=== PATIENT | male | born 1955 ===

== ENCOUNTER 2018-11-16 11:21 | Emergency (ER) | payer OTHER ==
[~2018-11-16] VITALS: Ht 170.2 cm; Wt 75.0 kg
[~2018-11-16 11:21] MED LIST: ACET-812 PO; FLUT100D2 INH; GING550C4 PO; LORA10TA7 PO; NITR0.4T48 SL; OMEG-169 PO; TURM500C7 PO
[2018-11-16] MEDS ORDERED: aspirin 81mg tab.chew PO ONE (11:40)
[2018-11-16 12:08] LABS: BASOPHILS % (AUTO) 0.7 % (0-1); EOSINOPHILS # (AUTO) 0.1 X10'3 (0-0.9); EOSINOPHILS % (AUTO) 1.6 % (0-6); HEMOGLOBIN 14.9 g/dl (14.0-17.9); LYMPHOCYTES # (AUTO) 1.5 X10'3 (1.1-4.8); LYMPHOCYTES % (AUTO) 27.4 % (21-51); MEAN CORPUSCULAR HEMOGLOBIN 30.8 PG (27.0-31.0); MEAN CORPUSCULAR HGB CONC 33.8 g/dL (33.0-36.5); MEAN CORPUSCULAR VOLUME 91.2 FL (78-98); MONOCYTES # (AUTO) 0.6 X10'3 (0-0.9); NEUTROPHILS # (AUTO) 3.2 X10'3 (1.8-7.7); NEUTROPHILS % (AUTO) 58.3 % (42-75); PLATELET COUNT 201 X10'3 (140-440); RED BLOOD COUNT 4.82 X10'6 (4.70-6.10); RED CELL DISTRIBUTION WIDTH 13.6 % (11.5-14.5); WHITE BLOOD COUNT 5.4 X10'3 (4.5-11.0)
[2018-11-16 12:17] LABS: ALANINE AMINOTRANSFERASE 29 U/L (12-78); ALBUMIN/GLOBULIN RATIO 1.4 (1.1-1.5); ALKALINE PHOSPHATASE 68 IU/L (46-116); ANION GAP 10 (8-16); ASPARTATE AMINO TRANSFERASE 14 U/L (10-37); BILIRUBIN,TOTAL 0.4 MG/DL (0.1-1.0); BLOOD UREA NITROGEN 18 MG/DL (7-18); BUN/CREATININE RATIO 15.9 (5.4-32.0); CALCIUM 8.9 MG/DL (8.5-10.1); CHLORIDE 110 MMOL/L (99-107); CREATININE 1.13 MG/DL (0.60-1.10); GLUCOSE 95 MG/DL (70-104); SODIUM 143 MMOL/L (135-145); TOTAL CARBON DIOXIDE 23.2 MMOL/L (24-32); TOTAL PROTEIN 6.9 G/DL (6.4-8.2); eGFR 66 ML/MIN
[2018-11-16 12:24] LABS: MAGNESIUM 2.3 MG/DL (1.5-2.4)
[2018-11-16] MEDS ORDERED: ALPRAZolam 0.5mg tablet PO ONE (12:40)
[2018-11-16 15:53] VITALS: BP 143/84
== END 2018-11-16 15:59 | disposition home or self-care (01) ==
LOC: ER 11:22
DX: R07.89 Other chest pain (principal); Z95.1 Presence of aortocoronary bypass graft; Z79.899 Other long term (current) drug therapy
CPT/HCPCS: 36415; 71045; 80053; 83735; 83880; 84484; 85025; 93005; 99284

== ENCOUNTER 2018-12-31 08:02 | Outpatient (CLI) | payer OTHER ==
[2018-12-31] VITALS (7 sets, daily range): BP systolic 117–146; BP diastolic 70–80
[~2018-12-31] VITALS: Ht 75.6 cm; Wt 67.0 kg
[2018-12-31] MEDS ORDERED: nitroGLYCERIN 0.4mg SUBLingual tab SL PRN (08:45)
[2018-12-31] MEDS ORDERED: aminophylline 250mg/10ml inj. IV PRN (08:45)
[2018-12-31] MEDS ORDERED: normal saline 500ml IV soln 500 ML IV ONE (08:45)
[2018-12-31] MEDS ORDERED: regadenoson 0.4mg/5ml syringe IV ONE (08:45)
== END 2018-12-31 23:59 | disposition home or self-care (01) ==
LOC: RAD 08:02
PROVIDERS: ATTEND Internal Medicine Cardiovascular Disease
DX: R07.9 Chest pain, unspecified (principal)
CPT/HCPCS: 78452; 93017; 93306; A9500; J2785; J7040

== ENCOUNTER 2019-01-16 06:02 | Day surgery (SDC) | payer OTHER ==
[2019-01-15 10:08] LABS: BASOPHILS % (AUTO) 0.7 % (0-1); EOSINOPHILS % (AUTO) 1.3 % (0-6); HEMATOCRIT 44.4 % (42.0-52.0); HEMOGLOBIN 15.2 g/dl (14.0-17.9); LYMPHOCYTES # (AUTO) 1.3 X10'3 (1.1-4.8); LYMPHOCYTES % (AUTO) 34.6 % (21-51); MEAN CORPUSCULAR HEMOGLOBIN 31.8 PG (27.0-31.0); MEAN CORPUSCULAR HGB CONC 34.2 g/dL (33.0-36.5); MEAN CORPUSCULAR VOLUME 93.2 FL (78-98); MEAN PLATELET VOLUME 8.6 FL (7.4-10.4); MONOCYTES # (AUTO) 0.5 X10'3 (0-0.9); NEUTROPHILS # (AUTO) 1.9 X10'3 (1.8-7.7); NEUTROPHILS % (AUTO) 50.4 % (42-75); PLATELET COUNT 196 X10'3 (140-440); RED BLOOD COUNT 4.76 X10'6 (4.70-6.10); WHITE BLOOD COUNT 3.8 X10'3 (4.5-11.0)
[2019-01-15 10:19] LABS: PARTIAL THROMBOPLASTIN TIME 28 SECONDS (22-32)
[2019-01-15 10:24] LABS: ALBUMIN 3.9 G/DL (3.4-5.0); ANION GAP 8 (8-16); BLOOD UREA NITROGEN 21 MG/DL (7-18); BUN/CREATININE RATIO 16.7 (5.4-32.0); CALCIUM 9.4 MG/DL (8.5-10.1); CHLORIDE 109 MMOL/L (99-107); CREATININE 1.26 MG/DL (0.60-1.10); GLUCOSE 98 MG/DL (70-104); POTASSIUM 4.4 MMOL/L (3.5-5.1); SODIUM 142 MMOL/L (135-145); TOTAL CARBON DIOXIDE 25.1 MMOL/L (24-32); eGFR 58 ML/MIN
[2019-01-16] VITALS (16 sets, daily range): BP systolic 115–152; BP diastolic 73–97
[~2019-01-16] VITALS: Ht 170.2 cm; Wt 74.9 kg
[2019-01-16] MEDS ORDERED: LIDOcaine/PRILOcaine 5gm cream TP ONE (06:25)
[2019-01-16] MEDS ORDERED: CARV3.122 PO (06:38)
[2019-01-16] MEDS ORDERED: MULT-933 PO (06:38)
[2019-01-16] MEDS ORDERED: GLUC500T12 (06:38)
[2019-01-16] MEDS ORDERED: LOSA25TA96 PO (06:38)
[2019-01-16] MEDS ORDERED: acetylcysteine 200 MG/ml 4ml vial PO PRN (06:40)
[2019-01-16] MEDS ORDERED: diphenhydrAMINE 25mg capsule PO PRN (06:40)
[2019-01-16] MEDS ORDERED: LORazepam 0.5 MG tablet PO PRN (06:40)
[2019-01-16] MEDS ORDERED: fentaNYL/PF 50MCG/1 ML 2ML syringe ONE (07:58)
[2019-01-16] MEDS ORDERED: heparin 1,000unit/ml 10ml vial 10 ML ONE (07:58)
[2019-01-16] MEDS ORDERED: nitroGLYCERIN-Tridil 50MG/D5W 250 ML IV ONE (07:58)
[2019-01-16] MEDS ORDERED: iohexol 350 MG/ML 50ML vial IV ONE (07:58)
[2019-01-16] MEDS ORDERED: midazolam 2 mg/2 ml injection ONE (07:58)
[2019-01-16] MEDS ORDERED: LIDOcaine 1% (10mg/ml)w/preservative injection 20ml MDV ONE (07:58)
[2019-01-16] MEDS ORDERED: iohexol 350MG/ML 100ml bottle IV ONE (07:58)
[2019-01-16] MEDS ORDERED: verapamil 2.5 mg/ml inj IV ONE (07:59)
[2019-01-16] MEDS ORDERED: sodium bicarbonate (8.4%) inj. 75 MEQ in dextrose 5% water 500ml 500 ML IV SCH (08:00)
== END 2019-01-16 15:00 | disposition home or self-care (01) ==
LOC: SSTAY O 06:02
PROVIDERS: ATTEND Internal Medicine Cardiovascular Disease
DX: I25.119 Atherosclerotic heart disease of native coronary artery with unspecified angina pectoris (principal); K21.9 Gastro-esophageal reflux disease without esophagitis; I12.9 Hypertensive chronic kidney disease with stage 1 through stage 4 chronic kidney disease, or unspecified chronic kidney disease; N18.9 Chronic kidney disease, unspecified; G47.33 Obstructive sleep apnea (adult) (pediatric); E78.5 Hyperlipidemia, unspecified; Z79.899 Other long term (current) drug therapy; Z79.82 Long term (current) use of aspirin; Z82.49 Family history of ischemic heart disease and other diseases of the circulatory system
CPT/HCPCS: 36415; 80048; 85025; 85610; 85730; 93005; 93458; 99152; 99153; C1769; C1894; J1644; J2001; J2250; J3010; Q0163; Q9967; A4620; J3490